=== PATIENT | female | born 1980 | race African-American/Black ===

== ENCOUNTER 2016-10-29 15:29 | Emergency (ER) | payer MEDICARE, MEDICAID ==
[2016-10-29 15:52] VITALS: BP 117/87
--- NOTE | 2016-10-29 15:56 | ER Document Report ---
ED Medical Screen (RME) - General Stated Complaint: FALL ANKLE PAIN Time seen by provider: 15:52 Mode of Arrival: Wheelchair Information source: Patient Notes: 36-year-old female presents to ED for pain in her left foot and ankle with swelling up to her knee. She states she has been seeing for an ankle she broke on September 22. She had surgery on this ankle on the summer. She states she fell again today and the pain is much worse.. States the swelling in her leg has been for the last 2 or 3 days. Warmth to the skin I have greeted and performed a rapid initial assessment of this patient. A comprehensive ED assessment and evaluation of the patient, analysis of test results and completion of medical decision making process will be conducted by an additional ED providers. TRAVEL OUTSIDE OF THE [place] IN LAST 30 DAYS: No - Related Data Allergies/Adverse Reactions: penicillin V [Penicillin V] Allergy (Verified 09/27/16 08:47) Past Medical History - Past Medical History Cardiac Medical History: Reports: Hx Hypertension Denies: Hx Coronary Artery Disease, Hx Heart Attack Pulmonary Medical History: Denies: Hx Asthma, Hx Bronchitis, Hx COPD, Hx Pneumonia Neurological Medical History: Denies: Hx Cerebrovascular Accident, Hx Seizures Renal/ Medical History: Reports: Hx Kidney Stones Musculoskeltal Medical History: Denies Hx Arthritis, Reports Hx Multiple Sclerosis Psychiatric Medical History: Reports: Hx Anxiety, Hx Personality Disorder Infectious Medical History: Reports: Hx MRSA - leg and arm Past Surgical History: Reports: Hx Gynecologic Surgery, Hx Orthopedic Surgery - L foot. Denies: Hx Hysterectomy - Immunizations Hx Diphtheria, Pertussis, Tetanus Vaccination: Yes
[2016-10-29] MEDS ORDERED: IBUPROFEN 800 MG TABLET PO ONE (15:59)
[2016-10-29 16:33] LABS: ABSOLUTE BASOPHILS # (AUTO) 0.1 10^3/uL (0.0-0.2); ABSOLUTE EOSINOPHILS # (AUTO) 0.1 10^3/uL (0.0-0.6); ABSOLUTE LYMPHOCYTES (AUTO) 1.5 10^3/uL (0.5-4.7); ABSOLUTE MONOCYTES (AUTO) 0.6 10^3/uL (0.1-1.4); ABSOLUTE NEUT (AUTO) 5.1 10^3/uL (1.7-8.2); BASOPHILS % (AUTO) 1.2 % (0-2); EOSINOPHILS % (AUTO) 0.9 % (0-6); HEMATOCRIT 35.2 % (36.0-47.0); HEMOGLOBIN 10.5 g/dL (12.0-15.5); HGB HCT DIFFERENCE -3.7; LYMPHOCYTES % (AUTO) 20.4 % (13-45); MEAN CORPUSCULAR HEMOGLOBIN 22.6 pg (27.0-33.4); MEAN CORPUSCULAR HGB CONC 29.9 g/dL (32.0-36.0); MEAN CORPUSCULAR VOLUME 76 fl (80-97); RED BLOOD COUNT 4.66 10^6/uL (3.72-5.28); RED CELL DISTRIBUTION WIDTH 15.9 % (11.5-14.0); SEGMENTED NEUTROPHILS % (AUTO) 69.5 % (42-78); WHITE BLOOD COUNT 7.3 10^3/uL (4.0-10.5)
[2016-10-29 16:35] LABS: PROTHROMBIN TIME 13.3 SEC (11.4-15.4)
[2016-10-29 16:36] LABS: PARTIAL THROMBOPLASTIN TIME 34.1 SEC (23.5-35.8)
[2016-10-29 16:52] LABS: ALANINE AMINOTRANSFERASE 6 U/L (9-52); ALBUMIN 3.6 g/dL (3.5-5.0); ALKALINE PHOSPHATASE 100 U/L (38-126); ANION GAP 9 (5-19); ASPARTATE AMINO TRANSFERASE 14 U/L (14-36); BILIRUBIN,TOTAL 0.4 mg/dL (0.2-1.3); BLOOD UREA NITROGEN 14 mg/dL (7-20); CALCIUM 9.5 mg/dL (8.4-10.2); CARBON DIOXIDE 28 mmol/L (22-30); CHLORIDE 104 mmol/L (98-107); CREATININE RESULT 0.77 mg/dL (0.52-1.25); GLUCOSE 90 mg/dL (75-110); POTASSIUM 4.8 mmol/L (3.6-5.0); SODIUM 140.8 mmol/L (137-145); TOTAL PROTEIN 7.2 g/dL (6.3-8.2)
--- NOTE | 2016-10-29 20:03 | ER Document Report ---
ED General - General Chief Complaint: Fall Stated Complaint: FALL ANKLE PAIN Mode of Arrival: Wheelchair TRAVEL OUTSIDE OF THE [place] IN LAST 30 DAYS: No - HPI Patient complains to provider of: left leg swelling Notes: Patient coming in for evaluation of left leg swelling. Patient had a ankle fracture an operative repair by a local orthopedic doctor states since that time increased swelling has not gone to her knee. Patient states she has been elevating her leg at night with no relief. Patient is currently in a walking boot. Denies any trauma. Patient denies history of DVT. - Related Data Allergies/Adverse Reactions: penicillin V [Penicillin V] Allergy (Verified 10/29/16 15:55) Past Medical History - General Information source: Patient - Social History Smoking Status: Never Smoker Chew tobacco use (# tins/day): No Frequency of alcohol use: None Drug Abuse: None Family History: CAD, DM, Malignancy Patient has suicidal ideation: No Patient has homicidal ideation: No - Past Medical History Cardiac Medical History: Reports: Hx Hypertension Denies: Hx Coronary Artery Disease, Hx Heart Attack Pulmonary Medical History: Denies: Hx Asthma, Hx Bronchitis, Hx COPD, Hx Pneumonia Neurological Medical History: Denies: Hx Cerebrovascular Accident, Hx Seizures Renal/ Medical History: Reports: Hx Kidney Stones. Denies: Hx Peritoneal Dialysis Musculoskeltal Medical History: Denies Hx Arthritis, Reports Hx Multiple Sclerosis Psychiatric Medical History: Reports: Hx Anxiety, Hx Personality Disorder Infectious Medical History: Reports: Hx MRSA - leg and arm Past Surgical History: Reports: Hx Gynecologic Surgery, Hx Orthopedic Surgery - L foot. Denies: Hx Hysterectomy - Immunizations Hx Diphtheria, Pertussis, Tetanus Vaccination: Yes Hx Pneumococcal Vaccination: 10/10/13 Review of Systems - Review of Systems Constitutional: No symptoms reported EENT: No symptoms reported Cardiovascular: No symptoms reported Respiratory: No symptoms reported Gastrointestinal: No symptoms reported Genitourinary: No symptoms reported Female Genitourinary: No symptoms reported Musculoskeletal: Other - Like swelling left greater than right Skin: No symptoms reported Hematologic/Lymphatic: No symptoms reported Neurological/Psychological: No symptoms reported Physical Exam - Vital signs Vitals: Temp Pulse Resp BP Pulse Ox 98.4 F 93 18 117/87 H 95 10/29/16 15:51 10/29/16 15:51 10/29/16 15:51 10/29/16 15:51 10/29/16 15:51 Interpretation: Normal - General General appearance: Appears well, Alert - HEENT Head: Normocephalic, Atraumatic Eyes: Normal Pupils: PERRL - Respiratory Respiratory status: No respiratory distress Chest status: Nontender Breath sounds: Normal Chest palpation: Normal - Cardiovascular Rhythm: Regular Heart sounds: Normal auscultation Murmur: No - Abdominal Inspection: Normal Distension: No distension Bowel sounds: Normal Tenderness: Nontender Organomegaly: No organomegaly - Back Back: Normal, Nontender - Extremities General upper extremity: Normal inspection, Nontender, Normal color, Normal ROM , Normal temperature General lower extremity: Normal inspection, Nontender, Edema - Swelling 3+ pitting edema with Guillermo lower surgical scar well-healed of the left leg. There is also swelling of the right leg 1+., Normal color, Normal ROM, Normal temperature, Normal weight bearing. No: Joycelyn's sign - Neurological Neuro grossly intact: Yes Cognition: Normal Orientation: AAOx4 [place] Coma Scale Eye Opening: Spontaneous Theresa Coma Scale Verbal: Oriented Theresa Coma Scale Motor: Obeys Commands Theresa Coma Scale Total: 15 Speech: Normal Motor strength normal: LUE, RUE, LLE, RLE Sensory: Normal - Psychological Associated symptoms: Normal affect, Normal mood - Skin Skin Temperature: Warm Skin Moisture: Dry Skin Color: Normal Course - Re-evaluation Re-evalutation: 10/29/16 23:32 Doppler negative. Patient will be discharged home follow-up with orthopedics. Patient was encouraged to elevate her leg also encouraged to undergo lymphatic massage to help decrease her swelling. Patient also encouraged watch of her salt and fluid intake. - Vital Signs Vital signs: Temp Pulse Resp BP Pulse Ox 98.4 F 93 18 117/87 H 95 10/29/16 15:51 10/29/16 15:51 10/29/16 15:51 10/29/16 15:51 10/29/16 15:51 - Laboratory Result Diagrams: 10/29/16 16:10 10/29/16 16:10 Laboratory results interpreted by me: 10/29/16 10/29/16 16:10 16:10 Hgb 10.5 L Hct 35.2 L MCV 76 L MCH 22.6 L MCHC 29.9 L RDW 15.9 H ALT 6 L Discharge - Discharge Clinical Impression: Leg edema, left Condition: Good Disposition: HOME, SELF-CARE Instructions: Dependent Edema ([facility]) Additional Instructions: Please follow-up with your orthopedic doctor. Please follow-up with your primary care physician. Return to the ER symptoms worsen. Your ultrasound today shows no signs of blood clot. Referrals: IAIN TRINIDAD MD [Primary Care Provider] - Follow up in 3-5 days
== END 2016-10-29 20:39 | disposition home or self-care (01) ==
LOC: ER 15:29
DX: R60.0 Localized edema (principal); M25.572 Pain in left ankle and joints of left foot; M79.89 Other specified soft tissue disorders
CPT/HCPCS: 99284; 36415; 84703; 85025; 85610; 85730; 80053; 93971; A9270

== ENCOUNTER → 2017-01-11 | Outpatient (CLI) | payer MEDICARE, MEDICAID | LOC: OD 07:50 | PROVIDERS: ATTEND Advanced Practice Midwife | DX: Z53.9 Procedure and treatment not carried out, unspecified reason (principal) ==